=== PATIENT | female | born 1940 | race Caucasian/White ===

== ENCOUNTER 2018-07-25 02:26 | Emergency (ER) | payer BC, OTHER ==
[2018-07-25 02:31] VITALS: TEMP 98.1; BMI 22.8
--- NOTE | 2018-07-25 02:33 | PDOC ---
History of Present Illness - General Chief Complaint: Muscle Cramping Stated Complaint: TINGLING SENSATION LEGS Time Seen by Provider: 07/25/18 02:32 - History of Present Illness Initial Comments: 07/25/18 03:17 The patient is an 78 year old female with a history of HTN, HLD, MVP, Hypothyroid who presents for evaluation of numbness and tingling. The patient reports a several day history of worsening bilateral leg numbness and tingling as well as left arm numbness and tingling prompting her presentation to the ED for further evaluation. She states that she had similar symptoms in the past after botox injections for blepharospasm but never this severe. She reports a sensation of a racing heart as well as burning to her feet but otherwise denies fevers, chills, SOB, chest pain, nausea, vomiting, abdominal pain, weakness, or changes with urination or bowel movements. Past History - Past Medical History Allergies/Adverse Reactions: Allergies Allergy/AdvReac Type Severity Reaction Status Date / Time No Known Allergies Allergy Verified 07/25/18 02:30 Home Medications: Ambulatory Orders Levothyroxine [Synthroid -] 25 mcg PO DAILY 10/08/12 propRANOLol HCL [Inderal -] 10 mg PO Q8H 10/08/12 LORazepam [Ativan] 2 mg PO HS #1 tablet 08/09/13 Atorvastatin Calcium [Lipitor] 10 mg PO HS 07/25/18 Cardiac Disorders: Yes (MVP) GI Disorders: Yes (H. PYLORI 30 YEARS AGO) HTN: Yes Thyroid Disease: Yes (HYPOTHYROID) - Suicide/Smoking/Psychosocial Hx Smoking Status: No Smoking History: Never smoked Have you smoked in the past 12 months: No Number of Cigarettes Smoked Daily: 0 Hx Alcohol Use: No Drug/Substance Use Hx: No Substance Use Type: None Review of Systems - Review of Systems Comments:: 07/25/18 03:19 Constitutional: No fevers, chills, fatigue, malaise HEENT: No Rhinorrhea, nasal congestion, visual changes Cardiovascular: No chest pain, syncope, palpitations, lightheadedness Respiratory: No Cough, SOB, Hemoptysis, Gastrointestinal: No Abdominal pain, Nausea, Vomiting, Constipation, Diarrhea, Melena Genitourinary: No Dysuria, Frequency, Urgency, Hesitancy, Hematuria, Flank pain Musculoskeletal: No Myalgia, arthralgia Skin: No rashes, itching, bruising, pallor Neurologic: Numbness, Tingling. No Headache, Dizziness, Weakness, Psychiatric: No Hallucinations. No SI or HI *Physical Exam - Vital Signs Last Vital Signs Temp Pulse Resp BP Pulse Ox 98.1 F 66 16 183/75 H 99 07/25/18 02:29 07/25/18 02:29 07/25/18 02:29 07/25/18 02:29 07/25/18 02:29 - Physical Exam Comments: 07/25/18 03:20 General Appearance: Nourished. No Apparent Distress HEENT: EOMI, GETACHEW. No Pharyngeal Erythema, Tonsillar Exudate, Tonsillar Erythema Neck: No Cervical Lymphadenopathy Respiratory/Chest: Lungs Clear, Normal Breath Sounds. No Crackles, Rales, Rhonchi, Wheezing Cardiovascular: Regular Rhythm, Regular Rate. No Murmur, Gallops, Rubs Gastrointestinal/Abdominal: Normal Bowel Sounds, Soft. No Guarding, Rebound, Tenderness Musculoskeletal: No CVA Tenderness Extremity: Normal Capillary Refill Integumentary: Normal Color, Dry, Warm Neurologic: night manager II-XII NML intact, Fully Oriented, Alert, Normal Mood/Affect, Normal Response, Motor Strength 5/5. Normal Finger to Nose and Heel to Hernandes Sensation to light touch and pin-prick intact bilaterally. Heart Score/ECG Review #1 ECG reviewed & interpreted by me at: 04:14 General ECG Interpretation: Sinus Rhythm, Normal Rate, Normal Intervals, No acute ischemic changes 07/25/18 04:14 Possible left atrial enlargement Incomplete right bundle branch block HR 60 QRS 102 QTc 430 ED Treatment Course - LABORATORY CBC & Chemistry Diagram: 07/25/18 03:37 07/25/18 03:37 Medical Decision Making - Medical Decision Making 07/25/18 03:21 The patient is an 78 year old female with a history of HTN, HLD, MVP, Hypothyroid who presents for evaluation of numbness and tingling. Differential includes but is not limited to: Intracranial process, ACS, Infectious, Thyroid dysfunction, Metabolic Derangement. Given the patient's history and physical exam, we will obtain a cbc, cmp, troponin, ekg, tsh, T4, head ct to evaluate further. We will continue to monitor and reassess while here in the ED. 07/25/18 04:53 CBC, cmp, troponin, TSH were unremarkable. Head CT was unremarkable as preliminarily read by our carpet installation specialist radiologist. The patient was reassessed and appears clinically well on exam. We are comfortable discharging the patient home in stable condition. Patient and family made aware of impression and plan, return precautions discussed including but not limited to worsening pain or symptoms, fevers, or signs of infection, chest pain, respiratory distress, inability to tolerate oral intake, dehydration, syncope, or neurologic changes. The patient is to follow up with PMD and her Neurologist as recommended within 1 week, follow up information provided and the patient will call for an appointment. The patient is to take medications as instructed for duration of time and continue with supportive care, avoid triggers and precipitants. Patient is safe for outpatient follow-up. *DC/Admit/Observation/Transfer Diagnosis at time of Disposition: Numbness and tingling - Discharge Dispostion Disposition: HOME Condition at time of disposition: Stable Decision to Admit order: No - Referrals Referrals: Zaira Steele [Primary Care Provider] - Ryan Drake MD [Staff Physician] - - Patient Instructions Printed Discharge Instructions: DI for Numbness/tingling Additional Instructions: 1) Please follow-up with your primary care doctor and Neurologist in the next 2- 3 days. Please call tomorrow to schedule a follow up appointment. If you cannot follow up with your doctor within 1 week please return to the Emergency Department for any urgent issues. 2) Your laboratory / imaging results were normal here in the ER. 3) If you have any worsening of symptoms or any other concerns please return to the ER immediately. Return if worsening symptoms including fevers, headache, vomiting, visual or hearing disturbances, abdominal pain, chest pain, shortness of breath, syncope, dehydration, inability to take things by mouth/vomiting, altered mental status, or worsening concerning symptoms. 4) Please continue taking your home medications as directed. - Post Discharge Activity
--- NOTE | 2018-07-25 02:37 | PDOC ---
Attending Attestation - Resident Resident Name: Enoch Gonzalez - ED Attending Attestation I have performed the following: I have examined & evaluated the patient, The case was reviewed & discussed with the resident, I agree w/resident's findings & plan - HPI HPI: 07/25/18 03:34 Pt comes with complaints of numbenss and tingling in her body, she has burning of her tongue and burning of her soles of her feet. - Physicial Exam PE: 07/25/18 06:38 Agree with resident exam. Pt has intact soft and sharp sensation in her legs and arms. She has minimal numbness in the finger tips bilat. Pt has normal equal reflexes in her extremities. Pt has no abd pain. She has no flank pain and normal heart and lung sounds. Pt has no rashes and she has no fevers. Pt was hydrated and given banana bag and she is feeling better and she was reassured and she will be sent home with her daughter and they will follow with her neurologust - Medical Decision Making 07/25/18 04:23 WBC normal; chem pending. Pt will be given a banana bag to correct for nutritional deficiencies. 07/25/18 04:24 CT head pending 07/25/18 04:46 Patient Name: SALO ARCE THIS IS A PRELIMINARY REPORT FROM [facility] DATE OF SERVICE: 2018-07-25 04:13:04 IMAGES: 171 EXAM: CT HEAD WITHOUT CONTRAST No acute brain parenchymal abnormality. No hemorrhage, mass or acute territorial infarct. Atrophy and chronic small vessel ischemic changes. Chronic lacunar infarct left basal ganglia. Clear visualized paranasal sinuses. Visualized mastoid air cells clear. Heart Score/ECG Review - ECG Intrepretation Rhythm: Regular Rhythm - Troy Troy: Normal - P and OH Delta Wave(s) Present: No WPW: No - QRS Poor R Wave Progression: No Q Wave Present: No - ST and T Early Repolarization: No Non Specific ST-T Wave changes: No Flattened T Waves: No Prolonged Q-T Interval: No
[2018-07-25] MEDS ORDERED: FOLIC ACID INJECTION - 1 MG, THIAMINE HCL 100 MG, MULTIVIT INJECTION ADULT 10 ML in SOD... IVPB ONE (03:34)
[2018-07-25 03:50] LABS: BASO % 0.8 % (0-2.0); EOS % 0.9 % (0-4.5); HEMATOCRIT 40.4 % (32.4-45.2); HEMOGLOBIN 13.8 GM/dL (10.7-15.3); LYMPH % 31.1 % (8-40); MCH 33.1 pg (25.7-33.7); MCHC 34.1 g/dl (32.0-36.0); MEAN CELL VOLUME 96.9 fl (80-96); MONO % 8.8 % (3.8-10.2); NEUT % 58.4 % (42.8-82.8); PLATELET COUNT 162 K/MM3 (134-434); RBC 4.18 M/mm3 (3.60-5.2); RDW 12.1 % (11.6-15.6); WHITE BLOOD COUNT 5.7 K/mm3 (4.0-10.0)
[2018-07-25 04:28] LABS: ALBUMIN 4.2 g/dl (3.4-5.0); ALK PHOS 94 U/L (45-117); ANION GAP 8 MMOL/L (8-16); BILIRUBIN,TOTAL 0.8 mg/dL (0.2-1); BLOOD UREA NITROGEN 12 mg/dL (7-18); CALCIUM 9.1 mg/dL (8.5-10.1); CHLORIDE 100 mmol/L (98-107); CO2 27 mmol/L (21-32); CREATININE 0.7 mg/dL (0.55-1.3); GLUCOSE,RANDOM 94 mg/dL (74-106); POTASSIUM 4.1 mmol/L (3.5-5.1); SGOT/AST 27 U/L (15-37); SGPT/ALT 28 U/L (13-61); SODIUM 134 mmol/L (136-145); TOT PROT 7.8 g/dl (6.4-8.2)
[2018-07-25 05:39] VITALS: BP 170/80; PULSE 72
--- NOTE | 2018-07-25 15:30 | EKG ---
Test Reason : Blood Pressure : / mmHG Vent. Rate : 060 BPM Atrial Rate : 060 BPM P-R Int : 162 ms QRS Dur : 102 ms QT Int : 430 ms P-R-T Axes : 079 031 043 degrees QTc Int : 430 ms NORMAL SINUS RHYTHM POSSIBLE LEFT ATRIAL ENLARGEMENT INCOMPLETE RIGHT BUNDLE BRANCH BLOCK BORDERLINE ECG NO PREVIOUS ECGS AVAILABLE Confirmed by XAVIER BARNES, ORALIA ([id number]) on 07/25/2018 3:30:09 PM Referred By: John HARDY Confirmed By:ORALIA PARK MD
== END 2018-07-25 05:39 | disposition home or self-care (01) ==
LOC: JER 02:26
PROC: 3E033GC Introduction of Other Therapeutic Substance into Peripheral Vein, Percutaneous Approach (ICD-10-PCS; principal; 2018-07-25)
DX: R20.0 Anesthesia of skin (principal); R20.2 Paresthesia of skin; I10 Essential (primary) hypertension; E03.9 Hypothyroidism, unspecified; E78.5 Hyperlipidemia, unspecified
CPT/HCPCS: 36415; 70450-TC; 80053; 82550; 82553; 84439; 84443; 84481; 84484; 85025; 93005; 93010; 96365; 96366; 99281-25; J7030